=== PATIENT | male | born 1945 | race Caucasian/White ===

== ENCOUNTER → 2016-08-30 | Day surgery (SDC) | payer MEDICARE, BC ==
[~2016-08-30] MED LIST: AMIO200T PO; BUPIVACAINE/EPINEPHRINE 0.5% PF 10 ML VIAL ONE; LACTATED RINGER'S 1000 ML INJ 1,000 ML ONE; LEVOFLOXACIN 500 MG PREMIX INJ 100 ML IV ONE; LIDOCAINE 1%/EPINEPHrine 1:100,000 SOLN 20 ML VIAL ONE; METO25 PO; METO25TA3 PO; MIDAZOLAM HCL 2 MG/2 ML VIAL ONE; NEOMYCIN/POLYMYXIN/BACITRACIN OINT 15 GM TUBE ONE; PROPOFOL 500 MG/50 ML BTL IV ONE; XARE20TA PO
--- NOTE | 2016-08-30 15:25 | TN ---
cc: ERNESTO CRUZNGHIAOFELIA DATE OF SURGERY: 08/30/2016 PREOPERATIVE DIAGNOSIS Right lower extremity hematoma nonhealing wound. POSTOPERATIVE DIAGNOSIS: Right lower extremity hematoma nonhealing wound. PROCEDURE: 1. Incision and drainage and evacuation of chronic hematoma of right lower extremity. 2. Excision of necrotic skin, subcutaneous tissue right lower extremity 3. Placement of drain in the cavity right lower extremity. ANESTHESIA TIVA. SURGEON Dr. Nadege MD. HISTORY: Patient is a pleasant 71-year-old gentleman who apparently was bit by a dog a few weeks back, he has had a chronic enlarging and inflamed hematoma the right lower extremity with some necrotic skin overlying it. Plans were made for above. PROCEDURE The patient and placed in the position after TIVA anesthesia his right leg is prepped with Betadine. We did not given antibiotics until we get a culture. We make an elliptical incision overlying the necrotic area in the right lower extremity, culture the fluid and hematoma that returns. This is evacuated out. There is probably about 100 cc, hematoma fluid and clot. This is completely evacuated out. He irrigate copiously with 500 mL of saline. There is no bleeding noted. We then place a [place] drain up to the superior aspect of the wound, in the medial aspect of the wound and a loosely reapproximate the skin and suturing the drain in place as well. Medial to this is a raw necrotic area which is debrided. A Xeroform gauze was placed on this irritated wound and sterile bandage is placed over the [place] and the opening. The patient tolerated the procedure well, was returned to recovery. No immediate postop complications. MD EDWARD Gabriel/eligio /2:28 PM /3:01 PM
== END | disposition home or self-care (01) ==
LOC: ESDC 12:11
PROVIDERS: ATTEND Surgery
DX: S81.851A Open bite, right lower leg, initial encounter (principal); B95.7 Other staphylococcus as the cause of diseases classified elsewhere
CPT/HCPCS: 00400; 10140; 11042; 87070; 87205; J1956; J2250; J3010; J7120

== ENCOUNTER 2016-10-22 11:41 | Day surgery (SDC) | payer MEDICARE, BC ==
[~2016-10-22 11:41] MED LIST changes: -AMIO200T PO; -BUPIVACAINE/EPINEPHRINE 0.5% PF 10 ML VIAL ONE; -LACTATED RINGER'S 1000 ML INJ 1,000 ML ONE; -LEVOFLOXACIN 500 MG PREMIX INJ 100 ML IV ONE; -LIDOCAINE 1%/EPINEPHrine 1:100,000 SOLN 20 ML VIAL ONE; -METO25TA3 PO; -MIDAZOLAM HCL 2 MG/2 ML VIAL ONE; -NEOMYCIN/POLYMYXIN/BACITRACIN OINT 15 GM TUBE ONE; +PROPOFOL 200 MG/20 ML AMP IV ONE; -PROPOFOL 500 MG/50 ML BTL IV ONE; -XARE20TA PO
[2016-10-22] MEDS ORDERED: XARE20TA PO (12:34)
[2016-10-22] MEDS ORDERED: METO25TA3 PO (12:34)
[2016-10-22] MEDS ORDERED: AMIO200T PO (12:34)
[2016-10-22] MEDS ORDERED: PROPOFOL 200 MG/20 ML AMP IV ONE (14:00)
--- NOTE | 2016-10-24 07:37 | EKG ---
Date Performed: 10/22/2016 Time Performed: 12:38:58 PTAGE: 71 years EKG: Atrial flutter with slow ventricular response. Right bundle branch block Possible anterosep murali infarct - age undetermined Abnormal ECG Compared to PREVIOUS TRACING , there has been a slowing of the ventricular response to the atrial flu tter. There has been improvement to the lateral ST segment changes. PREVIOUS TRACIN05/14/2016 11.5 2 DOCTOR: Neida Mares Interpretating Date/Time 10/24/2016 07:35:39
--- NOTE | 2016-10-24 11:19 | MP ---
cc: OFELIA RIZO M.D., HUMAYUN A. M.D. DATE OF SURGERY 10/22/2016 PROCEDURE PERFORMED Cardioversion INDICATION Atrial fibrillation PROCEDURE The patient was draped and prepped in the usual manner. A full TITO was performed. Following the TITO, left atrial thrombus was not noted. Consent prior to the procedure, risks of TITO and cardioversion were reviewed including , bleeding, perforation, aspiration, cardiac arrest, foreseen and unforeseen complications and the patient fully appeared to understand. The patient was then anesthetized by anesthesia. A full TITO was performed and following this, the patient was given a synchronized 200 joule shock which converted him to sinus bradycardia/sinus rhythm. CONCLUSION Successful cardioversion to sinus rhythm from sinus bradycardia. Apurva Masterson MD, CP,[facility]/DJL /2:08 PM /11:16 AM
--- NOTE | 2016-10-24 11:23 | CF ---
cc: APURVA MASTERSON M.D. PROCEDURE PERFORMED Transesophageal echo. INDICATION Check mitral valve, rule out left atrial appendage thrombus. TITO prior to cardioversion, assess mitral valve and aortic valve. CONSENT Full informed consent was obtained prior to the procedure. The risk of , bleeding, perforation, aspiration, foreseen and unforeseen complications were reviewed. The risk of cardiac arrest, etc., were reviewed. The patient fully appeared to understand. PROCEDURAL STATEMENT The patient was draped and prepped in usual manner. The patient was given anesthesia as per the Anesthesia Department and a full TITO was performed. FINDINGS The interatrial septum was intact. The interventricular septum was intact. The aortic valve was mildly thickened. There was evidence of mild aortic regurgitation. There was evidence of mild mitral regurgitation. Tricuspid valve showed mild tricuspid regurgitation. The LV function was normal. The RV function was normal. The aorta was visualized, there was evidence of some mild plaquing but no obvious dissection, etc. CONCLUSION Free of left atrial appendage thrombus. Mild mitral regurgitation, mild aortic regurgitation. PLAN Proceed with cardioversion. Apurva Masterson MD, CP,[facility] HAJ/YOSELINL /2:06 PM /11:08 AM
== END 2016-10-22 14:56 | disposition home or self-care (01) ==
LOC: HDOC 11:41 → HDIC 11:41 → HDOC 14:56
PROVIDERS: ATTEND Internal Medicine Cardiovascular Disease
DX: I48.91 Unspecified atrial fibrillation (principal); I48.92 Unspecified atrial flutter; I51.7 Cardiomegaly; I35.1 Nonrheumatic aortic (valve) insufficiency; E78.5 Hyperlipidemia, unspecified
CPT/HCPCS: 92960; 93005; 93312; 93320; 93325